=== PATIENT | female | born 2005 | race Caucasian/White ===

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

== ENCOUNTER 2025-02-01 12:26 | Emergency (ER) | payer OTHER, SELFPAY ==
[2025-02-01 12:35] VITALS: BP 111/59; PULSE 72; RESP 18; TEMP 36.7; O2SAT 100
--- NOTE | 2025-02-01 12:50 | ED.URI ---
HPI - URI/Sore Throat General Chief Complaint: Upper Respiratory Infection Stated Complaint: sore throat Time Seen by Provider: 02/01/25 12:29 Source: patient Mode of arrival: ambulatory Limitations: no limitations History of Present Illness HPI Narrative: Chelo is a 19-year-old female patient presenting to the clinic today with complaints of sore throat, nose, cough, and nasal congestion x4 days. She has had strep exposure so she is concerned about strep. She denies any fevers, chills, body aches. Denies any chest pain or shortness of breath. Has taken [id number] Mucinex for her symptoms. Related Data Home Medications ?Medication ?Instructions ?Recorded ?Confirmed ?Last Taken ?Type No Home Medications 01/09/23 02/01/25 Unknown History Allergies Allergy/AdvReac Type Severity Reaction Status Date / Time azithromycin AdvReac Mild Gi upset Verified 02/01/25 12:50 Review of Systems Review of Systems: Pertinent positives per HPI. Patient denies any fever, chills, rash, headache, visual changes, dizziness,shortness of breath, chest pain, palpitations, nausea, vomiting, diarrhea, constipation, abdominal pain, or any urinary issues. PMFSH Past Medical History Medical History Decreased hearing of right ear Social History Social History Social History: Caffeine- occasionally Smoking status: Never smoker Alcohol intake: never Substance use: never Substance use type: does not use Living arrangements: with family Occupation/Education: student Gender identity (if verbalized by the patient): Female Comments At the time of my signature, I reviewed and agree with the nursing past medical, surgical, social, and family history. There is no relevant family history pertinent to the patient complaint. Exam Narrative: General: Well-developed, well nourished, in no apparent distress Head: Normocephalic, atraumatic Eyes: Pupils equally round and reactive to light bilaterally, EOM intact, sclera and conjunctive clear, no discharge, lids normal Ears: TMs intact and clear, ear canals clear, no drainage, grossly hearing normal. Nose: Nares patent, clear nasal discharge, mild inflammation, no sinus tenderness. Mouth: Oral pharynx mildly red without lesions or masses, good dentition, MMM. Postnasal drip Neck: Supple, trachea midline, no enlargement of anterior or posterior cervical nodes, no thyroid masses or goiter palpable. Cardio: Regular rate and rhythm, s1 and s2 normal, no murmur appreciated. Resp: Clear to auscultation bilaterally, no rhonchi, rales, wheezing or rubs Course Course Emergency Course: Portions of this record may have been created with voice recognition software. Level of Care: Express Care Visit Vital Signs Vital signs: Vital Signs Temperature 36.7 C 02/01/25 12:35 Pulse Rate 72 02/01/25 12:35 Respiratory Rate 18 02/01/25 12:35 Blood Pressure 111/59 L 02/01/25 12:35 Pulse Oximetry 100 02/01/25 12:35 Oxygen Delivery Room Air 02/01/25 12:35 Temperature 36.7 C 02/01/25 12:35 Pulse Rate 72 02/01/25 12:35 Respiratory Rate 18 02/01/25 12:35 Blood Pressure 111/59 L 02/01/25 12:35 Pulse Oximetry 100 02/01/25 12:35 Oxygen Delivery Room Air 02/01/25 12:35 Vital signs reviewed MDM - URI/Sore Throat MDM Narrative Medical decision making narrative: At the time of visit patient is resting comfortably on the exam table. Patient appears to be nontoxic. Complaints of sore throat, nose, cough, and nasal congestion x4 days. She has had strep exposure so she is concerned about strep. She denies any fevers, chills, body aches. Denies any chest pain or shortness of breath. Has taken [id number] Mucinex for her symptoms. On exam patient has clear nasal discharge with postnasal drip, TMs intact and clear, lung sounds are clear and heart rate is regular rate rhythm. Strep test was ordered. Labs: Rapid strep test was negative in the clinic today. We will send for culture. Plan: I suspect patient has URI/pharyngitis. Supportive measures were discussed with the patient and they voiced understanding discharge instructions and agrees to treatment plan. Return precautions reviewed Differential Diagnosis Differential diagnosis: Likely upper respiratory infection, otitis media, sinusitis, viral infection, bronchitis, influenza, pharyngitis and other (COVID) Lab Data Labs: Lab Results 02/01/25 Range/Units 12:45 POC Grp A Strep Screen Negative (Negative) Discharge Plan Discharge Clinical Impression: Upper respiratory infection Qualifiers: URI type: unspecified URI Qualified Code(s): J06.9 - Acute upper respiratory infection, unspecified Pharyngitis Qualifiers: Pharyngitis/tonsillitis etiology: unspecified etiology Qualified Code(s): J02.9 - Acute pharyngitis, unspecified Patient Disposition: Home Condition: Stable Instructions: Antibiotic Form, Pharyngitis (ED), Cold Symptoms (ED) Additional Instructions: Strep test was negative in the clinic today. We will send strep for culture if this comes back positive we will contact you and place you on antibiotics at that time. Increase fluids and stay well hydrated May take Tylenol or motrin as directed on bottle for pain/fever May use Flonase 1 spray in each nare daily May take OTC antihistamines such as Zyrtec or Claritin daily as directed on bottle May apply Vicks vapor rub to chest to open sinuses Sinus rinses for congestion Cepacol spray, cough drops, throat lozenges, warm tea with honey/lemon, gargle salt water to soothe throat BRAT diet for diarrhea Clear liquids x 24 hours then advance as tolerated for nausea/vomiting Go to the ED if you develop a worsening in your condition- high fever not controlled by Tylenol or Motrin, dehydration, weakness, lethargy, shortness of breath, or chest pain. Follow up with your PCP in 3-5 days if symptoms persist. Patient Language: Martiniquais Prescriptions: No Action No Home Medications Follow-up/Referrals: Nona Huynh MD [Primary Care Provider, Pediatrics] Time of Disposition: 12:54 Quality NIHSS Nursing Documentation ED NIHSS nursing documentation: reviewed/agree
[2025-02-01 13:03] LABS: EDSTREPNEGPOS1 Negative (Negative)
== END 2025-02-01 13:04 | disposition home or self-care (01) ==
PROVIDERS: Emergency Provider Nurse Practitioner Family; PCP Pediatrics
DX: J06.9 Acute upper respiratory infection, unspecified (principal); J02.9 Acute pharyngitis, unspecified
CPT/HCPCS: 87081; 87880; 99213; G0463

== ENCOUNTER 2025-02-27 17:42 | Emergency (ER) | payer OTHER, SELFPAY ==
[2025-02-27 17:50] VITALS: BP 128/61; PULSE 79; RESP 18; TEMP 36.7; O2SAT 100
--- NOTE | 2025-02-27 17:50 | ED_ITS ---
HPI - URI/Sore Throat General Chief Complaint: Upper Respiratory Infection Stated Complaint: Sore Throat Time Seen by Provider: 02/27/25 17:50 Source: patient Mode of arrival: ambulatory Limitations: no limitations History of Present Illness HPI Narrative: 19 yo F presents with c/o sore throat, swollen tonsils, fatigue and headache for 4 wks. Recently finished augmentin with no improvement. Has had 2 negative strep tests. All systems reviewed and negative except as noted above. Related Data Allergies Allergy/AdvReac Type Severity Reaction Status Date / Time azithromycin AdvReac Mild Gi upset Verified 02/27/25 17:44 [facility] Past Medical History Medical History Decreased hearing of right ear Social History Social History Social History: Caffeine- occasionally Smoking status: Never smoker Alcohol intake: never Substance use: never Substance use type: does not use Living arrangements: with family Occupation/Education: student Gender identity (if verbalized by the patient): Female Comments At time of signature, agree with nursing past medical, surgical, social and family history. There is no relevant family history pertinent to the presenting complaint. Exam Narrative: GENERAL: This is a well-nourished, well-developed patient, in no apparent distress. HEAD: normocephalic, atraumatic. EYES: PERRL. Sclera clear/white. Vision is grossly intact. EARS: External ears normal, auditory canals clear and without drainage, TMs normal without perforation. Hearing grossly intact. NOSE: External nose normal with no obvious nasal discharge, nares without redness, no rhinorrhea. THROAT: Mucous membranes moist, Tonsils 3+ bilaterally, mild erythema. No exudates NECK: Neck supple, non-tender without lymphadenopathy, masses or thyromegaly. CARDIOVASCULAR: Regular rate and rhythm without murmurs, gallops, or rubs. RESPIRATORY: Clear to auscultation. Breath sounds equal bilaterally. No wheezes, rales, or rhonchi. SKIN: warm, Dry, intact with no suspicious lesions or rash, good texture and turgor. NEURO: awake, alert, and oriented to person, place and time. There were no obvious focal neurologic abnormalities. EXTREMITIES: No joint tenderness, effusion, or edema noted. Course Course Level of Care: Express Care Visit Vital Signs Vital signs: Vital Signs Temperature 36.7 C 02/27/25 17:50 Pulse Rate 79 02/27/25 17:50 Respiratory Rate 18 02/27/25 17:50 Blood Pressure 128/61 02/27/25 17:50 Pulse Oximetry 100 02/27/25 17:50 Oxygen Delivery Room Air 02/27/25 17:50 Temperature 36.7 C 02/27/25 17:50 Pulse Rate 79 02/27/25 17:50 Respiratory Rate 18 02/27/25 17:50 Blood Pressure 128/61 02/27/25 17:50 Pulse Oximetry 100 02/27/25 17:50 Oxygen Delivery Room Air 02/27/25 17:50 reviewed MDM - URI/Sore Throat MDM Narrative Medical decision making narrative: Strep and mono test negative. Strep culture ordered. Patient's mom requesting steroids to to help with swelling. Will continue Claritin. Recommend follow-up with ENT if no improvement. Differential Diagnosis Differential diagnosis: Likely upper respiratory infection, sinusitis, viral infection, pharyngitis and other ( [place]) Lab Data Labs: Lab Results 02/27/25 Range/Units 18:15 POC Monoscreen Negative (Negative) POC Grp A Strep Screen Negative (Negative) Discharge Plan Discharge Clinical Impression: Tonsillar enlargement Patient Disposition: Home Condition: Stable Instructions: Tonsillitis (ED) Additional Instructions: your strep and mono test was negative today. Take prednisone as prescribed. Continue Claritin daily. Follow-up with ENT specialist if not improving. Patient Language: Z[place]ian Prescriptions: New prednisone 20 mg tablet 40 mg PO DAILY 5 Days Qty: 10 0RF Follow-up/Referrals: Grupo Renteria MD [Physician, Ear, Nose, Throat] Referral Note: Follow up with ENT specialist Nona Huynh MD [Primary Care Provider, Pediatrics] Time of Disposition: 18:22
[2025-02-27 18:18] LABS: EDMONONEGPOS Negative (Negative); EDSTREPNEGPOS1 Negative (Negative)
== END 2025-02-27 18:32 | disposition home or self-care (01) ==
PROVIDERS: Emergency Provider Nurse Practitioner Family; PCP Pediatrics
DX: J35.1 Hypertrophy of tonsils (principal)
CPT/HCPCS: 36416; 86308; 87081; 87880; 99213; G0463